=== PATIENT | female | born 1950 ===

== ENCOUNTER 2025-06-21 06:00 | Day surgery (SDC) | payer OTHER ==
[2025-06-13 08:42] VITALS: BP 135/78
[2025-06-13 09:08] LABS: URINE APPEARANCE Clear; URINE BILIRRUBIN Negative (NEGATIVE); URINE BLOOD Negative; URINE COLOR Yellow; URINE GLUCOSE Negative (NEGATIVE); URINE KETONE Negative (NEGATIVE); URINE LEUKOCYTE Trace; URINE NITRATE Negative; URINE PROTEIN Negative (NEGATIVE); URINE UROBILINOGEN 0.2 E.U./dl
[2025-06-13 09:13] LABS: URINE BACTERIA 23.9 uL (0.0-1933); URINE CAST 0.73 uL (0.0-1.40); URINE EPITHELIAL CELLS 15.6 uL (0.0-38.8); URINE RBC 2.1 uL (0.0-20.8); URINE WBC 36.9 uL (0.0-23.2)
[2025-06-13 09:41] LABS: INR 0.99
[2025-06-13 09:43] LABS: BASO % 0.6 % (0.1-1.2); EOS # 0.21 (0.04-0.54); EOS % 4.0 % (0.7-7.0); LYMPH # 1.78 (1.18-3.74); LYMPH % 34.0 % (19.3-53.1); MEAN PLATELET VOLUME 9.80 fl (9.4-12.4); MONO # 0.26 (0.24-0.82); MONO % 5.0 % (4.7-12.5); NEUT # 2.94 (1.56-6.13); NEUT % 56.0 % (34.0-71.1); RED CELL DISTRIBUTION WIDTH 14.8 % (11.6-14.4)
[2025-06-13 09:59] LABS: ALT/SGPT 16.0 U/L (12-78); AST/SGOT 16.0 U/L (15-37); BILIRUBIN TOTAL 0.53 mg/dL (0.3-1.2); BUN CREA RATIO 16.0 (7.0-25.0); CREATININE SERUM 0.85 mg/dL (0.55-1.02); GFR 65.2; GLOBULINA 3.0 G/DL (2.4-3.5); GLUCOSE FASTING 151.0 mg/dL (65-100); OSMOLALITY SERUM 288.0 MOSM/KG (275-295)
[~2025-06-21] VITALS: Ht 154.9 cm; Wt 97.1 kg
[~2025-06-21 06:00] MED LIST: BREO ELLIPTA I1 EACH IH; COZAAR25 MG PO; GLUCOTROL PO; PROTONIX40 MG PO; ZOLOFT50 MG PO
[2025-06-21] MEDS ORDERED: POVIDONE-IODINE 118 ML BOTT TOP ONE (07:01)
[2025-06-21] MEDS ORDERED: CEFAZOLIN SODIUM 1,000 MG VIAL ONE (07:03)
[2025-06-21] MEDS ORDERED: IBU600 MG PO (10:00)
[2025-06-21] MEDS ORDERED: DOXYCYCLINE HY100 M2 PO (10:00)
== END 2025-06-21 14:20 | disposition home or self-care (01) ==
LOC: CIR.AMB 06:00
PROVIDERS: ATTEND Obstetrics & Gynecology
DX: D25.0 Submucous leiomyoma of uterus (principal); N95.0 Postmenopausal bleeding; N84.0 Polyp of corpus uteri; Z88.2 Allergy status to sulfonamides